=== PATIENT | male | born 1975 | race Asian ===

== ENCOUNTER 2018-10-20 16:27 | Emergency (ER) | payer OTHER ==
[2018-10-20] MEDS: SOD CHLORIDE 0.9% 1,000 ML IV (17:10)
[2018-10-20] MEDS: KETOROLAC 30 MG INJ IV (17:10)
[2018-10-20 17:13] LABS: ADD MAN DIFF? NO
[2018-10-20 17:19] LABS: BASOPHIL # 0.1 10^3/ul (0.0-0.1); BASOPHILS % 0.9 % (0.0-2.0); EOSINOPHILS # 0.1 10^3/ul (0.0-0.5); EOSINOPHILS % 1.3 % (0.0-7.0); HEMATOCRIT 46.4 % (42.0-52.0); HEMOGLOBIN 15.1 g/dl (14.0-18.0); LYMPHOCYTES # 1.9 10^3/ul (0.8-2.9); LYMPHOCYTES % 17.7 % (15.0-51.0); MEAN CORPUSCULAR HEMOGLOBIN 28.8 pg (29.0-33.0); MEAN CORPUSCULAR HGB CONC 32.5 g/dl (32.0-37.0); MEAN CORPUSCULAR VOLUME 88.4 fl (82.0-101.0); MEAN PLATELET VOLUME 9.2 fl (7.4-10.4); MONOCYTE # 0.9 10^3/ul (0.3-0.9); MONOCYTES % 8.2 % (0.0-11.0); NEUTROPHIL # 7.8 10^3/ul (1.6-7.5); NEUTROPHILS % 71.5 % (39.0-77.0); PLATELET COUNT 407 10^3/UL (140-415); RED BLOOD COUNT 5.25 10^6/ul (4.70-6.10); RED CELL DISTRIBUTION WIDTH 12.4 % (11.5-14.5)
[2018-10-20 17:27] LABS: ADD UMIC YES; UR ASCORBIC ACID 40 mg/dL (NEGATIVE); UR BILIRUBIN (Dip) NEGATIVE (NEGATIVE); UR BLOOD (Dip) 2+ mg/dL (NEGATIVE); UR CLARITY CLEAR (CLEAR); UR COLOR AMBER (YELLOW); UR GLUCOSE (Dip) NEGATIVE (NEGATIVE); UR KETONES (Dip) NEGATIVE (NEGATIVE); UR LEUKOCYTE ESTERASE (Dip) NEGATIVE Leu/ul (NEGATIVE); UR NITRITE (Dip) POSITIVE (NEGATIVE); UR RBC 180 /HPF (0-5); UR SPECIFIC GRAVITY (Dip) 1.013 (1.003-1.030); UR TOTAL PROTEIN (Dip) NEGATIVE (NEGATIVE); UR UROBILINOGEN (Dip) 2+ mg/dL (NEGATIVE); UR WBC 1 /HPF (0-5)
[2018-10-20 17:38] LABS: ALANINE AMINOTRANSFERASE 43 IU/L (13-69); ALBUMIN 4.6 g/dl (3.3-4.9); ALBUMIN/GLOBULIN RATIO 1.27; ALKALINE PHOSPHATASE 72 IU/L (42-121); ANION GAP 9 (5-13); ASPARTATE AMINO TRANSFERASE 36 IU/L (15-46); BILIRUBIN,INDIRECT 0.3 mg/dl (0-1.1); BILIRUBIN,TOTAL 0.3 mg/dl (0.2-1.3); BLOOD UREA NITROGEN 10 mg/dl (7-20); CALCIUM 9.4 mg/dl (8.4-10.2); CARBON DIOXIDE 25 mmol/L (21-31); CHLORIDE 104 mmol/L (97-110); CREATININE 0.59 mg/dl (0.61-1.24); Estimated GFR > 60 mL/min (>60); GLUCOSE 125 mg/dl (70-220); LIPASE 87 U/L (23-300); SODIUM 138 mmol/L (135-144); TOTAL PROTEIN 8.2 g/dl (6.1-8.1)
== END 2018-10-20 18:16 | disposition home or self-care (01) ==
LOC: FTE 16:27
DX: R31.9 Hematuria, unspecified (principal); I10 Essential (primary) hypertension
CPT/HCPCS: 36415; 76775; 80053; 81001; 83690; 85025; 96374; 99285-25

== ENCOUNTER 2019-05-20 09:01 | Day surgery (SDC) | payer BC ==
[~2019-05-20 09:01] MED LIST: CEFAZOLIN 2 GM/50 ML (PMX) 50 ML IVPB
[2019-05-20] MEDS ORDERED: LACTATED RINGER'S 1,000 ML IV (11:00)
[2019-05-20] MEDS ORDERED: hydrALAzine 20 MG INJ IV (12:30)
[2019-05-20] MEDS ORDERED: LABETALOL HCL 20MG INJ IV (12:30)
[2019-05-20] MEDS ORDERED: METOCLOPRAMIDE 10 MG INJ IV (12:30)
[2019-05-20] MEDS ORDERED: DIPHENHYDRAMINE 50 MG INJ IV (12:30)
[2019-05-20] MEDS ORDERED: EPHEDrine 25 MG/5 ML SYG IV (12:30)
[2019-05-20] MEDS ORDERED: FENTAnyl 50 MCG/ML VIAL IV (12:30)
[2019-05-20] MEDS ORDERED: ONDANSETRON 4 MG INJ IV (12:30)
[2019-05-20] MEDS ORDERED: MEPERIDINE 25 MG INJ IV (12:30)
[2019-05-20] MEDS ORDERED: HYDROmorphONE 1 MG/5 ML IV SYRINGE IV ×2 (12:30)
[2019-05-20] MEDS ORDERED: FENTAnyl 50 MCG/ML VIAL ×2 (12:36→12:57)
[2019-05-20] MEDS ORDERED: CEFAZOLIN 1 GM INJ (12:36)
[2019-05-20] MEDS ORDERED: PROPOFOL 20 ML ×2 (12:36→13:04)
[2019-05-20] MEDS ORDERED: MIDAZOLAM 1 MG/ML 2 ML INJ (12:36)
[2019-05-20] MEDS ORDERED: METOCLOPRAMIDE 10 MG INJ (13:04)
[2019-05-20] MEDS ORDERED: DEXAMETHASONE 4 MG/ML 5 ML INJ (13:04)
[2019-05-20] MEDS ORDERED: ONDANSETRON 4 MG INJ (13:04)
[2019-05-20] MEDS ORDERED: HYDROCODONE/APAP (5/325) TAB PO ×2 (14:30)
[2019-05-20] MEDS ORDERED: IBUPROFEN 600 MG TAB PO (14:30)
[2019-05-20] MEDS ORDERED: morphine 10 MG INJ IM (14:30)
[2019-05-20] MEDS: OXYCODONE/ACETAMINOPHEN (5/325) TAB PO (14:42)
[2019-05-20] MEDS: FENTAnyl 50 MCG/ML VIAL IV (14:42)
== END 2019-05-20 16:10 | disposition home or self-care (01) ==
LOC: SDS 09:01
DX: Q85.00 Neurofibromatosis, unspecified (principal); E78.5 Hyperlipidemia, unspecified; I10 Essential (primary) hypertension; K21.9 Gastro-esophageal reflux disease without esophagitis; H40.9 Unspecified glaucoma
CPT/HCPCS: 64788